=== PATIENT | female | born 1990 | race Caucasian/White ===

== ENCOUNTER 2019-03-11 16:44 | Outpatient (CLI) | payer OTHER ==
[~2019-03-11] VITALS: Ht 162.6 cm; Wt 96.8 kg
--- NOTE | 2019-03-11 16:15 | NUR ---
Patient ambulatory to LR3 with spouse, changed into gown, FHR/TOCO monitors placed and explained. Patient states she had "some fluid leak out that made underwear wet, I have not noticed any more leaking since then, feeling some period cramping". Denies any regular painful contractions, vaginal bleeding, or decreased movement. Patient states she had sexual intercourse last night. Plan of care discussed. 1641: SVE-/60/-3 and amniotest negative with white mucus discharge noted on glove. Dr. Saeed at nurses station and updated. Dr. Saeed reviewing FHR strip. Orders to get reactive strip for 20 minutes and can be discharged home. Dr. Saeed reviews strip and states patient can go home. 1700: Patient off the monitor. Discharge information gone over and patient verbalizes understanding. 1715: Patient ambulates off unit with spouse.
[2019-03-11] MEDS ORDERED: PRENATAL MVI (16:57)
[2019-03-11 17:00] VITALS: BP 134/76; PULSE 100; TEMP 98.6
== END 2019-03-11 17:15 | disposition home or self-care (01) ==
LOC: LDRO 16:44
DX: Z34.93 Encounter for supervision of normal pregnancy, unspecified, third trimester (principal); Z3A.40 40 weeks gestation of pregnancy

== ENCOUNTER 2019-03-13 01:04 | Outpatient (CLI) | payer SELFPAY ==
[~2019-03-13] VITALS: Ht 162.6 cm; Wt 96.8 kg
[~2019-03-13 01:04] MED LIST: PRENATAL MVI
[2019-03-13 01:30] VITALS: BP 138/84; PULSE 71; TEMP 98.3
--- NOTE | 2019-03-13 02:00 | NUR ---
0110- Patient ambulatory with , Trav, to LR4. Patient oriented to room and into restroom to void and change into gown. 0115- EFM and TOCO on and tracing. Patient here with complaints of leaking of fluid. Patient states she has had no large gushes of water but it has been "trickling" out of her for over an hour and she has been wearing a maxi pad. Patient states she has had consistent contractions every 5-10 minutes since 1400. They have since spaced out since 0100. Patient denies any bleeding or spotting and baby has been moving normally for her today. Assessment completed. VSS. SVE 3. Amniotest negative. Results discussed with ceramic coater machineMain. 0130- Patient repositioned WL. 0137- EFM and TOCO off. Maxi pad on. Patient ambulating halls. 0157- EFM and TOCO on. Amniotest negative. 0200- See Physician Notification. 0215- SVE 3. Unchanged from previous SVE. EFM and TOCO off. 0220- Discharge instructions explained to patient. Questions encouraged and answered. 0225- Patient ambulatory off unit with to home.
[2019-03-13 02:15] VITALS: BP 130/79; PULSE 80; TEMP 97.7
== END 2019-03-13 02:25 | disposition home or self-care (01) ==
LOC: LDRO 01:04 → LDR 01:10 → LDRO 02:25
DX: O09.93 Supervision of high risk pregnancy, unspecified, third trimester (principal); Z3A.40 40 weeks gestation of pregnancy
CPT/HCPCS: OP

== ENCOUNTER 2019-03-15 00:04 | Inpatient (IN) | payer SELFPAY ==
[2019-03-14 02:35] VITALS: BP 135/83; PULSE 101
[2019-03-15] VITALS (72 sets, daily range): BP systolic 98–179; BP diastolic 54–100; PULSE 76–155; TEMP 97.7–99.8
[~2019-03-15] VITALS: Ht 165.1 cm; Wt 95.5 kg
--- NOTE | 2019-03-15 00:20 | NUR ---
0020 [id number] 41 WEEK GEST TO LR5 WITH C/O REGULAR CONTRACTIONS SINCE 2200 LAST NIGHT. NO C/O LEAKING FLUID. EFM ON. SVE /-2. ADM ASSESSMENT DONE.
--- NOTE | 2019-03-15 00:35 | NUR ---
0035 PT STATES "FEELS LIKE SHE IS PEEING." MOD AMT PINKISH TINGED FLUID NOTED ON BLUE PAD. FHT DECREASE FROM BL OF 120 TO 100 FOR 120 SECONDS AND THEN RETURN TO BASELINE. TO LEFT SIDE. 0045 DR MANNING NOTIFIED OF PT AND SROM. ADM ORDERS RECEIVED.
--- NOTE | 2019-03-15 01:00 | NUR ---
0100 IV STARTED IN LEFT HAND AND BOLUS GIVEN. UNCOMFORTALBE BUT BREATHING WELL THRU CONTRACTIONS.
--- NOTE | 2019-03-15 01:30 | NUR ---
0130 SVE DONE . EFM OFF AND UP TO BR. LEAKING CL FLUID. AMD IN ROOM AND TO BIRTHING BALL FOR COMFORT. INTERESTED IN HOT TUB.
[2019-03-15 01:32] LABS: BASO % 0.2 % (0.0-2.0); EOS # 0.1 (0.0-0.7); EOS % 0.4 % (0-4.0); GRAN % 72.5 % (42.2-75.2); HEMOGLOBIN 10.8 g/dl (12.5-16.0); LYMPH # 2.6 (1.2-3.4); MEAN CELL VOLUME 89 fl (80.0-100.0); MEAN CORPUSCULAR HEMOGLOBIN 29 pg (27.0-31.0); MEAN CORPUSCULAR HGB CONC 32 g/dl (33.0-37.0); MEAN PLATELET VOLUME 12.8 fl (7.4-10.4); MONO # 0.9 (0.1-0.6); MONO % 6.7 % (1.7-9.3); PLATELET COUNT 193 K/mm3 (130-400); RED BLOOD COUNT 3.74 M/mm3 (4.10-5.30); REDCELL DISTRIBUTION WIDTH-CV 15.2 % (11.5-14.5)
[2019-03-15 01:35] LABS: HEMATOCRIT 33.4 % (37.0-47.0)
--- NOTE | 2019-03-15 03:35 | NUR ---
0335 COAL TOWER OPERATOR CALLED FOR EPID PLACEMENT. 0345 SITTING ON SIDE OF BED FOR EPID.
--- NOTE | 2019-03-15 04:00 | NUR ---
0400 TEST DOSE GIVEN. UNABLE TO CIGAR HEAD PIERCER CONTINUOUS EFM TRACING WHILE SITTING UP.
[2019-03-15] MEDS ORDERED: MOTRIN 800800 MG/TAB PO (07:26)
--- NOTE | 2019-03-15 12:25 | NUR ---
1144 - Dr. Saeed to pt bedside. SVE per provider . IUPC discussed with pt, and plan of care updated and agreed. 1148 - IUPC placed by Dr. Saeed. Pt placed in LL position with right leg up in stirrup. heart tones tracing intermittently, FHR 90-125. MD remains at bedside monitoring FHR. 1155 - Pt repositioned to RL with left leg in stirrup. EFM adjusted. FHR tracing 115-120. Physician remains on unit monitoring FHR.
[2019-03-15 18:26] LABS: HEMATOCRIT 25.4 % (37.0-47.0); HEMOGLOBIN 8.4 g/dl (12.5-16.0)
--- NOTE | 2019-03-15 18:28 | NUR ---
1508 - SVE 10/100/+2, Dr. Saeed notified. Pt prepped to start pushing with contractions. 1525 - Mak removed, Pt placed in semi-fowlers position, started pushing with contractions with RN at bedside. FHR tracing intermittently due to pushing. FHR variables noted after contractions. 1613 - Dr. Saeed on unit at pt bedside, physician pushing with pt. 1629 - head visible. Isabelle Tony RN from Nursery and Bradly Mancilla RN at bedside. Pt prepped for delivery. 1631 - Viable female infant delivered via by Dr. Saeed, apgars 7/8/9 . suctioned and placed on mother's abdomen. Care of to Isabelle Tony RN. Placenta manually removed by Dr. Saeed at 1633. Repair of second degree laceration performed by Dr. Saeed. See MD delivery note. 1700 - Mak placed per physician orders. 2g Ancef given per physician orders. 1705 - Pt repositioned, clean pad and ice pack placed. New gown provided. Pt stated she felt nauseous, appeared pale in color. Pt vomited a large amount. Pt cleaned up and respositioned for comfort. 1730 - Pt stated she felt lightheaded and nauseous, pt vomited again. 1755 - Dr. Saeed notified of pt condition. Orders received. Pt vomits again.
[2019-03-16] VITALS (32 sets, daily range): BP systolic 94–146; BP diastolic 42–72; PULSE 77–119; TEMP 97.4–98.5
--- NOTE | 2019-03-16 04:00 | NUR ---
Pt feeling better and vital signs stable. Pericare provided. Mesh panties and peripad on. Clean gown on. Pt able to pivot to wheelchair independently. Pt transferred to room 208 with and belongings.
--- NOTE | 2019-03-16 08:00 | NUR ---
Per verbal order from Dr. Saeed at nurses station take out vaginal packing and francisco catheter. Patient states she is feeling well, denies any nausea and dizziness. Patient ambulates to bathroom with assist times 1. Patient denies any dizziness with ambulation. Patient sitting on toilet. Francisco catheter removed. Saturated vaginal packing removed. Moderate flow of vaginal bleeding noted then slows to slow drip of red blood noted from vagina. Pericare provided and patient back to bed. Fundus massaged, firm and at umbilicus. Baseball sized spot of blood noted on peripad after fundal massage. Patient denies dizziness or nausea. Patient states she is just feeling pain in her vagina and abdomen. Percocet given. Monitoring VS.
[2019-03-16 08:36] LABS: BASO % 0.1 % (0.0-2.0); EOS # 0.1 (0.0-0.7); EOS % 0.3 % (0-4.0); GRAN # 12.4 (1.4-6.5); LYMPH # 1.6 (1.2-3.4); LYMPH % 11.1 % (20.0-51.0); MEAN CELL VOLUME 91 fl (80.0-100.0); MEAN CORPUSCULAR HGB CONC 32 g/dl (33.0-37.0); MEAN PLATELET VOLUME 12.2 fl (7.4-10.4); MONO # 0.6 (0.1-0.6); MONO % 3.9 % (1.7-9.3); PLATELET COUNT 127 K/mm3 (130-400); REDCELL DISTRIBUTION WIDTH-CV 15.9 % (11.5-14.5)
--- NOTE | 2019-03-16 08:55 | NUR ---
0855: computer support technician called with report of critical hgb value of 6.4. Dr. Saeed at nurses station and reported
[2019-03-16 08:57] LABS: HEMATOCRIT 20.1 % (37.0-47.0); HEMOGLOBIN 6.4 g/dl (12.5-16.0); MEAN CORPUSCULAR HEMOGLOBIN 29 pg (27.0-31.0)
--- NOTE | 2019-03-16 10:15 | NUR ---
1015: Patient states she needs to void. Assisted to bathroom to void. Patient sitting on toilet and states she sees some spots in her vision but does not feel dizzy. Patient unable to void. Patient back to bed with assist. Fundus massaged, firm and at umbilcus and midline, no free flow noted. Patient state she is feeling pressure in her bladder area. VS taken. Ecouraged patient to rest and will get her up in 30 minutes to void. Patient educated to call out sooner if she wants to attempt to void and to not ambulate without assistance.
--- NOTE | 2019-03-16 11:10 | NUR ---
patient ambulates to bathroom with assist. Patient able to void. Pericare taught and provided. Patient back to bed and educated to call out with ambulation. Patient denies any dizziness, visual changes or nausea.
--- NOTE | 2019-03-16 11:16 | NUR ---
Initial visit attempt; Consult in progress, Drug Inspector left card of congratulations for the of her daughter and information regarding the availability of spiritual care at [facility].
--- NOTE | 2019-03-16 12:57 | NUR ---
Patient ambulates to and from bathroom without assist. Patient standing at crib and states she is feeling well. Denies any dizziness, visual changes or nausea.
[2019-03-17] VITALS (10 sets, daily range): BP systolic 100–125; BP diastolic 45–64; PULSE 88–120; TEMP 97.5–99.1
[2019-03-17 17:44] LABS: HEMATOCRIT 23.8 % (37.0-47.0); HEMOGLOBIN 7.5 g/dl (12.5-16.0)
== END 2019-03-17 18:10 | disposition home or self-care (01) | DRG 806 ==
LOC: LDRO 00:04 → OB 01:06 → LDR 01:06 → OB 03-16 04:10
PROVIDERS: Obstetrics & Gynecology; ADMIT Obstetrics & Gynecology
PROC: 10E0XZZ Delivery of Products of Conception, External Approach (ICD-10-PCS; principal; 2019-03-15)
PROC: 0KQM0ZZ Repair Perineum Muscle, Open Approach (ICD-10-PCS; 2019-03-15)
PROC: 10D17Z9 Manual Extraction of Products of Conception, Retained, Via Natural or Artificial Opening (ICD-10-PCS; 2019-03-15)
DX: O48.0 Post-term pregnancy (principal); D62 Acute posthemorrhagic anemia; Z37.0 Single live birth; O76 Abnormality in fetal heart rate and rhythm complicating labor and delivery; Z3A.41 41 weeks gestation of pregnancy; O70.1 Second degree perineal laceration during delivery; O69.81X0 Labor and delivery complicated by cord around neck, without compression, not applicable or unspecified; O77.0 Labor and delivery complicated by meconium in amniotic fluid; O73.0 Retained placenta without hemorrhage; Z23 Encounter for immunization; O99.02 Anemia complicating childbirth
CPT/HCPCS: J0690; J2405; J2590; J7050; J7120; P9016

== ENCOUNTER 2022-07-21 17:27 | Inpatient (IN) | payer SELFPAY ==
[~2022-07-21] VITALS: Ht 162.6 cm; Wt 104.5 kg
[2022-07-21] VITALS (18 sets, daily range): BP systolic 113–160; BP diastolic 7–81; PULSE 67–129; TEMP 97.2–99.2
[~2022-07-21 17:27] MED LIST changes: +MOTRIN 800800 MG/TAB PO
[2022-07-21 17:54] LABS: BASO % 0.3 % (0.0-2.0); GRAN # 13.3 K/mm3 (1.4-6.5); GRAN % 84.8 % (42.2-75.2); HEMOGLOBIN 12.5 g/dl (12.5-16.0); LYMPH # 1.6 K/mm3 (1.2-3.4); MEAN CELL VOLUME 89 fl (80.0-100.0); MEAN CORPUSCULAR HEMOGLOBIN 31 pg (27-31); MEAN CORPUSCULAR HGB CONC 34 g/dl (33.0-37.0); MEAN PLATELET VOLUME 11.4 fl (7.4-10.4); MONO # 0.7 K/mm3 (0.1-0.6); MONO % 4.3 % (1.7-9.3); PLATELET COUNT 190 K/mm3 (130-400); REDCELL DISTRIBUTION WIDTH-CV 15.7 % (11.5-14.5)
[2022-07-21 17:55] LABS: HEMATOCRIT 36.3 % (37.0-47.0)
[2022-07-21 18:07] LABS: BILIRUBIN,TOTAL 0.4 mg/dL (0.2-1.2); CREATININE, serum 0.73 mg/dL (0.57-1.11); POTASSIUM 4.3 mmol/L (3.5-4.5)
--- NOTE | 2022-07-21 18:14 | NUR ---
1735 PATIENT HERE FROM HOME WITH HER SENIOR COBOL DEVELOPER. PATIENT HAS BEEN LABORING SINCE THIS MORNING AT 3 AM. SENIOR COBOL DEVELOPER STATES SHE RUPTURE AT NOON AND CLEAR, BUT PATIENT STATES SHE IS READING FOR EPIDURAL. SO CAME TO HOSPITAL. PATIENT HERE. ASSISTED TO BED. SVE 8/100/-3. BULGY BAG NOTED. DR MYRICK CALLED AND UPDATED AND TOLD TO COME TO HOSPITAL. 1745 DR MYRICK AT BEDSIDE TO TALK WITH PATIENT AND SENIOR COBOL DEVELOPER. IV STARTED IN R HAND. LR 1000CC HUNG WITH PEN G 5 MU PER PROTOCOL FOR UNKNOWN GBS. 175 DR MYRICK SONO TO COMFIRM VERTEX POSITION. SVE 8/100/-[address] MYRICK. 1755 MIDSIFE AT BEDSIDE. PATIENT HAS DECIDED TO NOT GET EPIDURAL AT THIS TIME IF DR WILL BREAK FOREBAG AT THIS TIME. DR MYRICK REMAINS AT BEDSIDE. FHT REMAIN 135 BABY VERY ACTIVE AND ACCELERATIONS NOTED. 1810 REPORT GIVEN TO HIRAL WRAY TO ASSUME CARE
--- NOTE | 2022-07-21 19:00 | NUR ---
[id number]: MULTIPLE POSITION CHANGES FROM JUMANA, STANDING AT BEDSIDE, ADN SQUAT BAR BEING USED. DR. MYRICK IN ROOM AT 1858, SVE UNCHANGED.
--- NOTE | 2022-07-21 19:30 | NUR ---
2724-1653: DIFFICULTY TRACING FHTs DUE TO MATERNAL POSITIONING FOR EPIDURAL PLACEMENT. THIS NURSE AT BEDSIDE ATTEMPTING TO HOLD US IN PLACE. 1915- Sintia NARAYAN CRNA IN ROOM FOR EPIDURAL PLACEMENT. PT SITTING AT BEDSIDE FOR PLACEMENT. 1922- TEST DOSE GIVEN BY Sintia NARAYAN CRNA. 1929- PT REPOSITIONED TO [facility] FOLLOWING EPIDURAL PLACMENT.
--- NOTE | 2022-07-21 20:23 | NUR ---
SVE AT 2019 OF 1, CERVICAL SWELLING NOTED ON LEFT SIDE. DR. MYRICK STATES THAT SWELLING WAS NOTED WITH HIS SVE AT 1900. PREVIOUSLY DISCUSSED EDA RUTLEDGE WITH PT TO ASSIST WITH SAID SWELLING, PT WANTED TO THINK ABOUT IT FIRST. PT AGREES TO PO MAYRRYL AT 2022.
--- NOTE | 2022-07-21 22:42 | NUR ---
2236- DR. MYRICK IN ROOM TO EVALUATE PT. 2239- SVE UNCHANGED. DR MYRICK DISCUSSES NEED FOR C/S DELIVERY DUE TO CONCERNS OF A LARGE BABY. PT IS VERY TEARFUL AND STATES THAT HER SISTER HAD TO HAVE AN EMERGENCY CSECTION AND HAD COMPLICATIONS WHICH SCARES HER. DISCUSSED WITH [employer] OFFICER, PT AND SPOUSE THAT THIS IN NOT AN EMERGENCY C.SECTION, QUESTIONS ENCOURAGED ANSWERED. PT AND SPOUSE AGREED TO PRIMARY C.SECTION. 2241- MAYTE ROMAN.
--- NOTE | 2022-07-21 23:08 | NUR ---
MONITORING DC'D. PT TO OR VIA BED FOR UNSCHEDULED C/S FOR ARREST OF DILITATION.
[2022-07-22] VITALS (19 sets, daily range): BP systolic 105–125; BP diastolic 44–67; PULSE 68–94; TEMP 97.7–98.1
--- NOTE | 2022-07-22 06:00 | NUR ---
RIGHT LEG REMAINS NUMB FOLLOWING C/S. PT ABLE TO DANGLE AT SIDE OF BED, PERIPAD AND MESH UNDERWEAR APPLIED. CALLAHAN REMAINS IN PLACE, EMPTIED, 2000MLS CLEAR YELLOW URINE OUT. CLEAN CHUX PAD APPLIED.
[2022-07-23 08:20] VITALS: BP 101/56; PULSE 82; TEMP 98.8
[2022-07-23] MEDS ORDERED: IBU600 MG PO (09:49)
[2022-07-23] MEDS ORDERED: ROXICODONE 55 MG/TAB PO (09:49)
[2022-07-23 16:29] VITALS: BP 114/45; PULSE 92; TEMP 98
[2022-07-23 20:00] VITALS: BP 104/55; PULSE 85; TEMP 97.7
[2022-07-24 08:19] VITALS: BP 116/60; PULSE 89; TEMP 97.3
--- NOTE | 2022-07-24 11:56 | NUR ---
HEALTH HISTORY GIVEN, DISCHARGE INSTRUCTIONS COMPLETED AND FOLLOW UP APPOINTMENTS DISCUSSED. QUESTIONS INVITED AND ANSWERED.
== END 2022-07-24 13:10 | disposition home or self-care (01) | DRG 788 ==
LOC: LDRO 17:27 → LDR 17:52 → OB 17:52
PROVIDERS: ADMIT Obstetrics & Gynecology
PROC: 10D00Z1 Extraction of Products of Conception, Low, Open Approach (ICD-10-PCS; principal; 2022-07-22)
DX: O48.0 Post-term pregnancy (principal); O24.420 Gestational diabetes mellitus in childbirth, diet controlled; Z37.0 Single live birth; O62.0 Primary inadequate contractions; O36.63X0 Maternal care for excessive fetal growth, third trimester, not applicable or unspecified; Z3A.40 40 weeks gestation of pregnancy
CPT/HCPCS: J0171; J0690; J1100; J1885; J2401; J2405; J2540; J2590; J2795; J3010; J7120